=== PATIENT | male | born 1950 | race Caucasian/White ===

== ENCOUNTER → 2016-11-01 | Outpatient (CLI) | payer MEDICARE, BC ==
[~2016-11-01] MED LIST: ALTACE 10MG TAB10 MG PO; ALTACE 5MG5 MG PO; ARIMIDEX1 MG PO; ARMOUR THYROID15 MG; ARMOUR THYROID60 MG PO; ASPIRIN 32325 MG/TAB PO; ASPIRIN 81M81 MG/TA2 PO; BYSTOLIC5 MG PO; COREG 6.256.25 MG/TA PO; FLOMAX 0.40.4 MG/CAP PO; HCTZ 25MG TAB25 MG PO; HCTZ12.5TAB PO; MULTIPLE VITAMI1 CAP PO; NORCO 325 MG-51 TAB PO; NORVASC 10MG10 MG PO; PLAVIX 75MG TAB75 MG PO; PREDNISONE20 MG PO; PYRIDIUM 100MG100 MG PO; VASOTEC 10M10 MG/TAB PO; VESICARE 5MG5 MG PO; ZOFRAN 4MG T4 MG/TAB PO; [UNRECOGNIZED DRUG - MIXTURE]
[2016-11-01 10:38] LABS: HEMOGLOBIN 16.4 g/dl (13.5-18.0)
[2016-11-01 10:41] LABS: HEMATOCRIT 48.6 % (42.0-52.0)
== END ==
LOC: COL.LAB 10:08
PROVIDERS: Family Medicine
DX: D75.1 Secondary polycythemia (principal)

== ENCOUNTER 2016-12-04 08:29 | Observation (INO) | payer MEDICARE, BC ==
[2016-12-04] VITALS (9 sets, daily range): BP systolic 112–138; BP diastolic 56–74; PULSE 51–75; TEMP 97.4–98.5
[~2016-12-04] VITALS: Ht 175.3 cm; Wt 85.9 kg
[~2016-12-04 08:29] MED LIST changes: -COREG 6.256.25 MG/TA PO; -NORCO 325 MG-51 TAB PO; -PYRIDIUM 100MG100 MG PO
[2016-12-04] MEDS ORDERED: COREG 6.256.25 MG/TA PO (10:20)
[2016-12-05 02:00] VITALS: BP 141/54; PULSE 58; TEMP 98.6
[2016-12-05 05:53] VITALS: BP 120/63; PULSE 55; TEMP 98.5
[2016-12-05 08:00] LABS: HEMATOCRIT 49.9 % (42.0-52.0); HEMOGLOBIN 16.4 g/dl (13.5-18.0); MEAN CELL VOLUME 93 fl (80.0-100.0); MEAN CORPUSCULAR HEMOGLOBIN 31 pg (27.0-31.0); MEAN CORPUSCULAR HGB CONC 33 g/dl (33.0-37.0); MEAN PLATELET VOLUME 9.9 fl (7.4-10.4); PLATELET COUNT 230 K/mm3 (130-400); RED BLOOD COUNT 5.34 M/mm3 (4.20-5.60); REDCELL DISTRIBUTION WIDTH-CV 13.7 % (11.5-14.5); WHITE BLOOD COUNT 11.6 K/mm3 (4.8-10.8)
[2016-12-05 09:49] VITALS: BP 151/57; PULSE 73; TEMP 97.3
[2016-12-05 13:33] VITALS: BP 120/64; PULSE 60; TEMP 98.2
[2016-12-05 17:36] VITALS: BP 135/55; PULSE 62; TEMP 98.3
[2016-12-05 21:34] VITALS: BP 126/62; PULSE 72; TEMP 97.5
[2016-12-06 01:53] VITALS: BP 146/74; PULSE 74; TEMP 98.5
[2016-12-06 04:54] VITALS: BP 147/70; PULSE 67; TEMP 98.5
[2016-12-06 09:15] VITALS: BP 131/71; PULSE 63; TEMP 98
[2016-12-06 13:29] VITALS: BP 151/71; PULSE 55; TEMP 97.6
[2016-12-06] MEDS ORDERED: NORCO 325 MG-51 TAB PO (15:04)
[2016-12-06] MEDS ORDERED: PYRIDIUM 100MG100 MG PO (15:07)
== END 2016-12-06 16:00 | disposition home or self-care (01) ==
LOC: SDCO 08:29 → SURG 13:42 → SDCO 12-05 08:30 → SURG 12-05 08:30
PROVIDERS: Urology
DX: N40.1 Benign prostatic hyperplasia with lower urinary tract symptoms (principal); R35.1 Nocturia; R35.0 Frequency of micturition; I10 Essential (primary) hypertension
CPT/HCPCS: OP; G0378; J0690; J1720; J2250; J2704; J7120

== ENCOUNTER → 2016-12-27 | Outpatient (CLI) | payer MEDICARE, BC ==
[~2016-12-27] MED LIST changes: +COREG 6.256.25 MG/TA PO; +NORCO 325 MG-51 TAB PO; +PYRIDIUM 100MG100 MG PO
[2016-12-27 10:31] LABS: HEMOGLOBIN 16.9 g/dl (13.5-18.0)
[2016-12-27 10:33] LABS: HEMATOCRIT 51.7 % (42.0-52.0)
== END ==
LOC: COL.LAB 09:58
PROVIDERS: Family Medicine
DX: D75.1 Secondary polycythemia (principal)

== ENCOUNTER → 2017-07-02 | Outpatient (CLI) | payer MEDICARE, BC | LOC: COL.RAD 07:21 | DX: Z13.6 Encounter for screening for cardiovascular disorders (principal); I70.0 Atherosclerosis of aorta; Z82.49 Family history of ischemic heart disease and other diseases of the circulatory system ==

== ENCOUNTER 2017-08-01 04:15 | Emergency (ER) | payer MEDICARE, BC ==
[~2017-08-01] VITALS: Ht 175.3 cm; Wt 82.7 kg
[2017-08-01 04:25] VITALS: TEMP 98.7
[2017-08-01] MEDS ORDERED: NORVASC 10MG10 MG PO (05:29)
[2017-08-01] MEDS ORDERED: COREG 6.256.25 MG/TA PO (05:29)
[2017-08-01] MEDS ORDERED: ARIMIDEX1 MG PO (05:30)
[2017-08-01] MEDS ORDERED: HCTZ 25MG TAB25 MG PO (05:30)
[2017-08-01] MEDS ORDERED: EPIPEN 2-PAK1 MG/ML IM (06:14)
[2017-08-01] MEDS ORDERED: PREDNISONE20 MG PO (06:14)
[2017-08-01 09:30] VITALS: BP 148/75; PULSE 75
== END 2017-08-01 09:40 | disposition home or self-care (01) ==
LOC: COL.ER 04:15
DX: T78.3XXA Angioneurotic edema, initial encounter (principal); I10 Essential (primary) hypertension
CPT/HCPCS: J0171; J1200; J2930

== ENCOUNTER 2019-03-18 02:58 | Emergency (ER) | payer MEDICARE, BC ==
[~2019-03-18 02:58] MED LIST changes: +EPIPEN 2-PAK1 MG/ML IM
[2019-03-18 03:08] VITALS: TEMP 98
[2019-03-18 03:20] LABS: BASO # 0.1 (0.0-0.2); BASO % 0.6 % (0.0-2.0); EOS # 0.1 (0.0-0.7); EOS % 1.4 % (0-4.0); GRAN # 5.8 (1.4-6.5); GRAN % 59.8 % (42.2-75.2); LYMPH # 2.4 (1.2-3.4); LYMPH % 24.2 % (20.0-51.0); MEAN CELL VOLUME 94 fl (80.0-100.0); MEAN CORPUSCULAR HEMOGLOBIN 31 pg (27.0-31.0); MEAN CORPUSCULAR HGB CONC 34 g/dl (33.0-37.0); MEAN PLATELET VOLUME 8.9 fl (7.4-10.4); MONO # 1.3 (0.1-0.6); MONO % 13.7 % (1.7-9.3); PLATELET COUNT 175 K/mm3 (130-400); RED BLOOD COUNT 5.73 M/mm3 (4.20-5.60); REDCELL DISTRIBUTION WIDTH-CV 13.8 % (11.5-14.5)
[2019-03-18 03:21] LABS: HEMATOCRIT 53.8 % (42.0-52.0)
[2019-03-18] MEDS ORDERED: ARMOUR THYROID60 MG PO (03:27)
[2019-03-18 03:29] LABS: ALBUMIN 4.1 gm/dL (3.5-5.0); BILIRUBIN,TOTAL 0.7 mg/dL (0.0-1.0); CALCIUM 9.7 mg/dL (8.4-10.2); CREATININE, serum 1.68 (0.66-1.25); PHOSPHOROUS 4.5 mg/dL (2.5-4.5); POTASSIUM 3.8 mmol/L (3.4-5.0); TOTAL PROTEIN 7.2 gm/dL (6.4-8.2)
[2019-03-18] MEDS ORDERED: NIZORAL SHAMPO120 M1 TP (03:30)
[2019-03-18] MEDS ORDERED: [UNRECOGNIZED DRUG - OTHER] (03:42)
[2019-03-18] MEDS ORDERED: EPIPEN 2-PAK1 MG/ML IM (05:01)
[2019-03-18] MEDS ORDERED: PREDNISONE20 MG PO (05:01)
[2019-03-18 07:35] VITALS: BP 135/83; PULSE 80
== END 2019-03-18 07:41 | disposition home or self-care (01) ==
LOC: COL.ER 02:58
PROVIDERS: Emergency Medicine
DX: T78.3XXA Angioneurotic edema, initial encounter (principal); I10 Essential (primary) hypertension
CPT/HCPCS: J0171; J1200; J2930; J7030; J7512

== ENCOUNTER 2019-12-16 06:52 | Day surgery (SDC) | payer MEDICARE, BC ==
[~2019-12-16] VITALS: Ht 172.7 cm; Wt 82.7 kg
[2019-12-16] VITALS (7 sets, daily range): BP systolic 115–142; BP diastolic 49–85; PULSE 57–79; TEMP 97.2–98.8
[~2019-12-16 06:52] MED LIST changes: +NIZORAL SHAMPO120 M1 TP; +[UNRECOGNIZED DRUG - OTHER]
--- NOTE | 2019-12-16 12:05 | NUR ---
[place] [facility] [place]. Pt drowsy, but awake and alert. Pt reports his pain is "tolerable when I am not moving." and rates pain at 4/10 at this time. Denies nausea. Instructed pt that we can give him po pain medication once he is able to tolerate PO food and fluids. Pt voices understanding. Sprite given at this time. Bandaids to abdomen x3 are clean dry and intact. Will continue to monitor. Call light within reach. O2 on at 3 liters via nasal canula.
[2019-12-16] MEDS ORDERED: ULTRAM 50MG TAB50 MG PO (12:17)
--- NOTE | 2019-12-16 12:20 | NUR ---
Muffin, pudding and more sprite given per pt request. Will continue to monitor.
--- NOTE | 2019-12-16 12:35 | NUR ---
Second muffin and pudding provided. Pt denies further needs at this time.
--- NOTE | 2019-12-16 12:50 | NUR ---
[place] 5/325mg 1 tab PO given per prn orders for pain. Pt rates pain 6/10 to abdomen. Pt c/o feeling bloated. Abdomen does appear rounded and firm to touch. Explained to pt about the retension of air used during surgery and cause this, and moving or warm packs to abdomen can help. Pt voices understanding.
--- NOTE | 2019-12-16 13:20 | NUR ---
Pt up to restroom with stand by assist. Pt voids large amount without difficulties. Pt wanting to ambulate halls. Pt's gait is steady while ambulation. Will continue to monitor.
--- NOTE | 2019-12-16 14:00 | NUR ---
Pt states "my pain is better the more I move." Denies needs at this time. Pt continues to ambulate halls prn.
--- NOTE | 2019-12-16 14:20 | NUR ---
Discharge instructions reviewed with pt by Harley ALEMAN. IV site discontinued with all parts intact. Pt dressing. Call light within reach.
--- NOTE | 2019-12-16 14:50 | NUR ---
Pt escorted to private car via wheel chair. Pt accompanied home by his friend Marie.
== END 2019-12-16 14:50 | disposition home or self-care (01) ==
LOC: SDCO 06:52
DX: K42.9 Umbilical hernia without obstruction or gangrene (principal); E23.0 Hypopituitarism; E78.5 Hyperlipidemia, unspecified; G89.29 Other chronic pain; I12.9 Hypertensive chronic kidney disease with stage 1 through stage 4 chronic kidney disease, or unspecified chronic kidney disease; N18.3 Chronic kidney disease, stage 3 (moderate); Z80.3 Family history of malignant neoplasm of breast; Z83.3 Family history of diabetes mellitus; Z88.8 Allergy status to other drugs, medicaments and biological substances; Z88.2 Allergy status to sulfonamides; Z85.79 Personal history of other malignant neoplasms of lymphoid, hematopoietic and related tissues; Z86.73 Personal history of transient ischemic attack (TIA), and cerebral infarction without residual deficits
CPT/HCPCS: C1781; J0171; J0690; J1100; J1170; J1200; J2405; J2704; J3010; J7120

== ENCOUNTER 2020-05-18 14:00 | Outpatient (RCR) | payer MEDICARE, BC ==
[~2020-05-18 14:00] MED LIST changes: +ULTRAM 50MG TAB50 MG PO
== END 2020-06-27 | disposition still patient (30) ==
LOC: WSPT
DX: M54.31 Sciatica, right side (principal)